=== PATIENT | male | born 1975 ===

== ENCOUNTER 2021-01-30 17:02 | Emergency (ER) | payer SELFPAY ==
[2021-01-30] MEDS ORDERED: Sodium Chloride 0.9% 10 ML Syringe FLUSH PRN (19:09)
[2021-01-30] MEDS ORDERED: diphenhydrAMINE 50 MG/ML SDV IVPUSH PRN (19:12)
[2021-01-30] MEDS ORDERED: methylPREDNISolone Sodium Succinate 125 MG/2 ML SDV IVPUSH PRN (19:12)
[2021-01-30] MEDS ORDERED: Famotidine 20 MG/2 ML SDV IVPUSH PRN (19:12)
[2021-01-30] MEDS ORDERED: EPINEPHrine 1 MG/ML SDV IM PRN (19:12)
[2021-01-30] MEDS ORDERED: Sodium Chloride 0.9% 10 ML Syringe FLUSH SCH (19:15)
--- NOTE | 2021-01-30 19:28 | EDM.PDOC ---
ED HPI GENERAL MEDICAL PROBLEM - General Chief Complaint: Respiratory Problem Stated Complaint: COVID+ Time Seen by Provider: 01/30/21 18:01 Source of Information: Reports: Patient, RN Notes Reviewed History Limitations: Reports: No Limitations - History of Present Illness INITIAL COMMENTS - FREE TEXT/NARRATIVE: Patient is a 45-year-old male presenting to the emergency department for evaluation of Covid symptoms. Reports that he began getting ill on Sunday, January 24 week which would put him 6 days into his illness. He was diagnosed as Covid positive on January 26. He is complaining of cough, shortness of breath, fatigue, headaches, and intermittent fevers. He denies any chronic underlying medical conditions. He did not receive the Covid vaccination. Reports occasional chest pain with coughing but does not have chest pain when at rest. This is his first evaluation for Covid. He has not been on any medications thus far. Headache Pain Score (Numeric/FACES): 1 - Related Data Allergies Allergy/AdvReac Type Severity Reaction Status Date / Time No Known Allergies Allergy Verified 01/30/21 17:35 Home Meds: Home Meds dexAMETHasone [Decadron] 6 mg PO DAILY #4 tablet 01/30/21 [Rx] Past Medical History - Past Health History Medical/Surgical History: Denies Medical/Surgical History Social & Family History - Tobacco Use Tobacco Use Status *Q: Former Tobacco User Used Tobacco, but Quit: Yes Month/Year Tobacco Last Used: 01/2021 - Caffeine Use Caffeine Use: Reports: Coffee - Recreational Drug Use Recreational Drug Use: No ED ROS GENERAL - Review of Systems Review Of Systems: See Below Constitutional: Reports: Fever, Chills, Fatigue HEENT: Reports: No Symptoms Respiratory: Reports: Shortness of Breath, Pleuritic Chest Pain, Cough Cardiovascular: Reports: No Symptoms. Denies: Palpitations, Syncope Endocrine: Reports: No Symptoms GI/Abdominal: Reports: No Symptoms. Denies: Abdominal Pain, Nausea, Vomiting : Reports: No Symptoms Musculoskeletal: Reports: No Symptoms Skin: Reports: No Symptoms Neurological: Reports: Headache. Denies: Confusion, Dizziness Psychiatric: Reports: No Symptoms Hematologic/Lymphatic: Reports: No Symptoms Immunologic: Reports: No Symptoms ED EXAM, GENERAL - Physical Exam Exam: See Below Exam Limited By: No Limitations General Appearance: Alert, WD/WN, No Apparent Distress Respiratory/Chest: No Respiratory Distress, Lungs Clear, Normal Breath Sounds, No Accessory Muscle Use, Chest Non-Tender Cardiovascular: Normal Peripheral Pulses, Regular Rate, Rhythm, No Edema, No Gallop, No JVD, No Murmur, No Rub GI/Abdominal: Normal Bowel Sounds, Soft, Non-Tender, No Organomegaly, No Distention, No Abnormal Bruit, No Mass Neurological: Alert, Oriented, CN II-XII Intact, Normal Cognition, Normal Gait, Normal Reflexes, No Motor/Sensory Deficits Psychiatric: Normal Affect, Normal Mood Skin Exam: Warm, Dry, Intact, Normal Color, No Rash #1 Interpretation EKG Date: 01/30/21 Time: 19:25 Rhythm: NSR Rate (Beats/Min): 96 [place]: Normal P-Wave: Present QRS: Normal ST-T: Normal QT: Normal Course - Vital Signs Last Recorded V/S: Last Vital Signs Temp 98.2 F 01/30/21 17:57 Pulse 91 01/30/21 22:30 Resp 20 01/30/21 22:30 BP 118/73 01/30/21 22:30 Pulse Ox 92 L 01/30/21 22:30 - Orders/Labs/Meds Labs: Laboratory Tests 01/30/21 01/30/21 01/30/21 Range/Units 18:00 18:00 18:00 WBC 3.33 L (4.23-9.07) K/mm3 RBC 5.74 (4.63-6.08) M/mm3 Hgb 16.5 (13.7-17.5) gm/dl Hct 50.5 (40.1-51.0) % MCV 88.0 (79.0-92.2) fl MCH 28.7 (25.7-32.2) pg MCHC 32.7 (32.2-35.5) g/dl RDW Std Deviation 43.9 (35.1-43.9) fL Plt Count 124 L (163-337) K/mm3 MPV 11.8 (9.4-12.3) fl Neut % (Auto) 66.1 (34.0-67.9) % Lymph % (Auto) 28.8 (21.8-53.1) % [place]yer % (Auto) 4.2 L (5.3-12.2) % Eos % (Auto) 0 L (0.8-7.0) Baso % (Auto) 0.6 (0.1-1.2) % Neut # (Auto) 2.20 (1.78-5.38) K/mm3 Lymph # (Auto) 0.96 L (1.32-3.57) K/mm3 [place]yer # (Auto) 0.14 L (0.30-0.82) K/mm3 Eos # (Auto) 0.00 L (0.04-0.54) K/mm3 Baso # (Auto) 0.02 (0.01-0.08) K/mm3 Manual Slide Review Abnormal smear D-Dimer, Quantitative 0.56 H (0.19-0.50) mg/L Sodium 134 L (136-145) mEq/L Potassium 3.9 (3.5-5.1) mEq/L Chloride 97 L (98-107) mEq/L Carbon Dioxide 26 (21-32) mEq/L Anion Gap 14.9 (5-15) BUN 15 (7-18) mg/dL Creatinine 1.3 (0.7-1.3) mg/dL Est Cr Clr Drug Dosing 63.39 mL/min Estimated GFR (MDRD) > 60 (>60) mL/min BUN/Creatinine Ratio 11.5 L (14-18) Glucose 95 (70-99) mg/dL Calcium 8.4 L (8.5-10.1) mg/dL Total Bilirubin 0.4 (0.2-1.0) mg/dL AST 123 H (15-37) U/L ALT 105 H (16-63) U/L Alkaline Phosphatase 47 (46-116) U/L Troponin I < 0.017 (0.00-0.056) ng/mL C-Reactive Protein 0.7 (<1.0) mg/dL Total Protein 7.9 (6.4-8.2) g/dl Albumin 3.7 (3.4-5.0) g/dl Globulin 4.2 gm/dL Albumin/Globulin Ratio 0.9 L (1-2) Meds: Medications Discontinued Medications Generic Name Dose Route Start Last Admin Trade Name Freq PRN Reason Stop Dose Admin Dexamethasone 6 mg 01/30/21 21:27 01/30/21 22:30 Dexamethasone 4 Mg Tab PO 01/30/21 21:28 6 mg ONETIME ONE Administration Diphenhydramine HCl 50 mg 01/30/21 19:12 Diphenhydramine 50 Mg/Ml Sdv IVPUSH ONETIME PRN hypersensitivity reaction Epinephrine HCl 0.3 mg 01/30/21 19:12 Epinephrine 1 Mg/Ml Sdv IM ONETIME PRN hypersensitivity reaction Famotidine 20 mg 01/30/21 19:12 Famotidine 20 Mg/2 Ml Sdv IVPUSH ONETIME PRN hypersensitivity reaction CASIRIVIMAB/IMDEVIMAB 10 ml/ 110 mls @ 220 mls/hr 01/30/21 19:12 01/30/21 20:00 Sodium Chloride IV 01/30/21 19:41 220 mls/hr ONETIME ONE Administration Ketorolac Tromethamine 30 mg 01/30/21 21:28 01/30/21 21:34 Ketorolac 30 Mg/Ml Sdv IVPUSH 01/30/21 21:29 30 mg ONETIME ONE Administration Methylprednisolone Sodium Succinate 125 mg 01/30/21 19:12 Methylprednisolone Sodium Succinate 125 Mg/2 Ml Sdv IVPUSH ONETIME PRN hypersensitivity reaction Ondansetron HCl 4 mg 01/30/21 21:28 01/30/21 21:34 Ondansetron 4 Mg/2 Ml Sdv IVPUSH 01/30/21 21:29 4 mg ONETIME ONE Administration Sodium Chloride 10 ml 01/30/21 19:09 01/30/21 20:21 Sodium Chloride 0.9% 10 Ml Syringe FLUSH 10 ml ASDIRECTED PRN Administration Keep Vein Open Sodium Chloride 30 ml 01/30/21 19:15 01/30/21 20:22 Sodium Chloride 0.9% 10 Ml Syringe FLUSH 30 ml ASDIRECTED SHAYLEE Administration - Re-Assessments/Exams Free Text/Narrative Re-Assessment/Exam: Pt is a 45 year old male presenting to the ER for evaluation of Covid symptoms. Reports that he is proximate 6 days into his illness. Complains of cough, shortness of breath, headache, fatigue. Lung sounds are clear on exam. Oxygen saturation is 98% on room air. I have ordered blood work, chest x-ray, EKG. I spoke with patient to provide information about Regeneron treatment for patient I offered them the ``Patient and Caregiver EUA Regeneron Fact Sheet to read and review I stated the drug has been approved by an emergency use authorization (EUA) process and has not fully been FDA reviewed or approved The patient meets the EUA requirements I discussed there are other potential treatment options that are currently not FDA approved to treat COVID-19. Offered opportunity to ask questions and all questions were answered Patient voiced understanding and agreed to proceed with treatment for patient. 01/30/21 19:57 Hematology significant for WBC low at 3.33, D-dimer minimally elevated 0.56. S odium 134, chloride 97, AST 123, ALT 105. Troponin is undetectably low. Minimal elevation in D-dimer as expected with a known diagnosis of COVID-19. Chest x-ray shows minimal density within the left lung base possibly due to minimal area of pneumonia. Slight Covid pneumonia is a possibility. 01/30/212129 Patient is complaining of headache and nausea. I have ordered Zofran and Dilaudid to be given. 01/30/21 22:30 Patient has completed the Regeneron infusion in the 1 hour waiting period without adverse event. He will be given dexamethasone 6 mg orally upon discharge. I will send prescription for this to his pharmacy. His "lady "was able to obtain a pulse oximeter for him to use at home. Discussed return precautions. Discharge instructions as documented. Departure - Departure Time of Disposition: 22:30 Disposition: Home, Self-Care 01 Condition: Good Clinical Impression: COVID - Discharge Information *PRESCRIPTION DRUG MONITORING PROGRAM REVIEWED*: No *COPY OF PRESCRIPTION DRUG MONITORING REPORT IN PATIENT MEI: No Prescriptions: dexAMETHasone [Decadron] 6 mg PO DAILY #4 tablet Instructions: COVID-19 Referrals: PCP,None [Primary Care Provider] - Forms: ED Department Discharge Additional Instructions: You were seen in the emergency department today for evaluation of Covid symptoms. Work-up included blood work, EKG, and chest x-ray. Results of your blood work were found to be overall normal given a diagnosis of COVID-19. Chest x-ray showed possible mild Covid pneumonia. While in the ER, you received an infusion of monoclonal antibodies. You have also been started on dexamethasone which is a steroid. Recommend that you rest. Purchase a pulse oximeter so that you may monitor your oxygen saturations at home. Continue use Tylenol and ibuprofen as needed for fever or discomfort. If you are experiencing worsening of symptoms, particular oxygen saturation maintaining below 90%, please not hesitate to return to the emergency department for reevaluation. Sepsis Event Note (ED) - Evaluation Sepsis Screening Result: No Definite Risk
--- NOTE | 2021-01-30 19:56 | CR ---
Chest: Portable view of the chest was obtained. Comparison: No prior chest imaging is available. Slight increased density is seen within the left lung base. Difficult to exclude minimal area of pneumonia. Left upper and right lung are clear. Heart size and mediastinum are stable. Bony structures show nothing acute. Impression: 1. Minimal density within the left lung base possibly due to minimal area of pneumonia. Slight COVID pneumonia is a possibility. Diagnostic code #3
[2021-01-30] MEDS ORDERED: Dexamethasone 4 MG Tab PO ONE (21:27)
[2021-01-30] MEDS ORDERED: Ondansetron 4 MG/2 ML SDV IVPUSH ONE (21:28)
[2021-01-30] MEDS ORDERED: Ketorolac 30 MG/ML SDV IVPUSH ONE (21:28)
== END 2021-01-30 22:45 | disposition home or self-care (01) ==
LOC: JD.ED 17:02
DX: U07.1 COVID-19 (principal); Z87.891 Personal history of nicotine dependence
CPT/HCPCS: 36415; 71045; 80053; 84484; 85025; 85379; 86140; 93005; 96374; 96375; 99285; J1885; J2405; J8540; M0243; Q0243

== ENCOUNTER 2021-07-24 17:24 | Emergency (ER) | payer OTHER ==
[2021-07-24 18:32] LABS: CORONAVIRUS COVID-19 NAA NEGATIVE (NEGATIVE)
== END 2021-07-24 19:45 | disposition home or self-care (01) ==
LOC: JD.ED 17:24
DX: B34.9 Viral infection, unspecified (principal); Z72.0 Tobacco use; Z20.822 Contact with and (suspected) exposure to COVID-19
CPT/HCPCS: 0241U; 36415; 71045; 80053; 85025; 99285; 99283